=== PATIENT | female | born 1975 | race Caucasian/White ===

== ENCOUNTER 2022-07-13 08:27 | Emergency (ER) | payer OTHER ==
[2022-07-13] MEDS ORDERED: Morphine 2 MG/ML SYRINGE IVPUSH ONE (09:07)
[2022-07-13] MEDS ORDERED: Sodium Chloride 0.9% 10 ML Syringe FLUSH PRN (09:08)
[2022-07-13] MEDS ORDERED: Sodium Chloride 0.9% 1,000 ML ONE (09:10)
[2022-07-13] MEDS ORDERED: LORazepam 2 MG/ML SDV IVPUSH ONE (10:02)
[2022-07-14 10:54] LABS: ANION GAP 12.2 mmol/L (5-15); CHLORIDE,CL 103 mmol/L (98-107); SODIUM,NA 137 mmol/L (136-145)
[2022-07-14 10:55] LABS: ESTIMATED GFR 112 mL/min (>=60)
== END 2022-07-13 11:00 | disposition home or self-care (01) ==
LOC: KA.ED 08:27
DX: S00.03XA Contusion of scalp, initial encounter (principal); S40.011A Contusion of right shoulder, initial encounter; S60.221A Contusion of right hand, initial encounter; V49.40XA Driver injured in collision with unspecified motor vehicles in traffic accident, initial encounter; Y92.410 Unspecified street and highway as the place of occurrence of the external cause
CPT/HCPCS: 36415; 70450; 71046; 72125; 73020-RT; 73120-RT; 80053; 84703; 85025; 96374; 96375; 99284; 99284-25; J2060; J2270; J7030; Q3014